=== PATIENT | female | born 1990 | race Hispanic/Latino ===

== ENCOUNTER 2019-05-01 12:31 | Outpatient (CLI) | payer MEDICAID ==
[2019-05-01] MEDS ORDERED: LACTATED RINGERS 500 ML IV ONE (12:59)
[2019-05-01 13:37] LABS: Hematocrit 36.3 % (30.3-42.9); Hemoglobin 12.1 gm/dl (10.1-14.3); Mean Corpuscular HGB Conc 33 % (30-34); Mean Corpuscular Volume 83 fl (79-97); Platelet Count 263 K/mm3 (140-440); Red Blood Count 4.36 M/mm3 (3.65-5.03); Red Cell Distribution Width 14.8 % (13.2-15.2)
[2019-05-01 14:00] LABS: Alanine Aminotransferase 7 units/L (7-56); Uric Acid 4.6 mg/dL (3.5-7.6)
[2019-05-01 14:23] LABS: Bilirubin,Urine NEG (Negative); Blood,Urine SM (Negative); Color,Urine Yellow (Yellow); Mucus,Urine FEW /HPF; Protein,Urine <15 mg/dL mg/dL (Negative)
[2019-05-01 15:24] VITALS: BP 140/69
[2019-05-02 21:34] LABS: Creatinine 24 Hour,Urine 1.3 (0.8-2.8); Creatinine,Urine 189.9 mg/dL (0.1-20.0)
== END 2019-05-01 15:41 | disposition home or self-care (01) ==
LOC: TRG 12:31
PROVIDERS: ATTEND Obstetrics & Gynecology
DX: O13.3 Gestational [pregnancy-induced] hypertension without significant proteinuria, third trimester (principal); Z3A.35 35 weeks gestation of pregnancy; Z87.891 Personal history of nicotine dependence
CPT/HCPCS: 36415; 59025; 81001; 82565; 82570; 83615; 84156; 84450; 84460; 84550; 85027

== ENCOUNTER 2019-05-07 19:15 | Inpatient (IN) | payer MEDICAID ==
[2019-05-07] MEDS ORDERED: LACTATED RINGERS 1,000 ML IV ONE (20:24)
[2019-05-07 20:44] LABS: Hematocrit 37.9 % (30.3-42.9); Hemoglobin 12.8 gm/dl (10.1-14.3); Mean Corpuscular HGB Conc 34 % (30-34); Mean Corpuscular Volume 84 fl (79-97); Platelet Count 248 K/mm3 (140-440); Red Blood Count 4.52 M/mm3 (3.65-5.03); Red Cell Distribution Width 14.9 % (13.2-15.2)
--- NOTE | 2019-05-07 20:55 | Anesthesia Consultation ---
Anesthesia Consult and Med Hx Date of service: 05/07/19 - Airway Anesthetic Teeth Evaluation: Poor ROM Head & Neck: Adequate Mental/Hyoid Distance: Adequate Mallampati Class: Class III Intubation Access Assessment: Probably Good - Pulmonary Exam CTA: Yes - Cardiac Exam Cardiac Exam: RRR - Pre-Operative Health Status ASA Pre-Surgery Classification: ASA3 Proposed Anesthetic Plan: Spinal - Pulmonary Hx Smoking: Yes Hx Asthma: No Hx Respiratory Symptoms: No SOB: No COPD: No Home Oxygen Therapy: No Hx Pneumonia: No Hx Sleep Apnea: No - Cardiovascular System Hx Hypertension: Yes Hx Coronary Artery Disease: No Hx Heart Attack/AMI: No Hx Angina: No Hx Percutaneous Transluminal Coronary Angioplasty (PTCA): No Hx Cardia Arrhythmia: No Hx Pacemaker: No Hx Internal Defibrillator: No Hx Valvular Heart Disease: No Hx Heart Murmur: No Hx Peripheral Vascular Disease: No - Central Nervous System Hx Neuromuscular Disorder: No Hx Seizures: No CVA: No Hx Back Pain: No Hx Psychiatric Problems: No - Gastrointestinal Hx Ulcer: No Hx Gastroesophageal Reflux Disease: No - Endocrine Hx Renal Disease: No Hx End Stage Renal Disease: No Hx Cirrhosis: No Hx Liver Disease: No Hx Insulin Dependent Diabetes: No Hx Non-Insulin Dependent Diabetes: No Hx Thyroid Disease: No Hx Hypothyroidism: No Hx Hyperthyroidism: No - Hematic Hx Anemia: No Hx Sickle Cell Disease: No - Other Systems Hx Alcohol Use: No Hx Substance Use: No Hx Cancer: No Hx Obesity: Yes (BMI 54.7)
[2019-05-07] MEDS ORDERED: ZOFRAN IV PRN (20:56)
[2019-05-07] MEDS ORDERED: BENADRYL IV PRN (20:56)
[2019-05-07] MEDS ORDERED: DILAUDID IV PRN ×2 (20:56)
--- NOTE | 2019-05-07 20:56 | Anesthesia Day of Surgery ---
Anesthesia Day of Surgery - Day of Surgery Patient Examined: Yes Patient H&P Reviewed: Yes Patient is NPO: Yes Beta Blockers: No Cardiac Clearance: No Pulmonary Clearance: No Rafat's Test: N/A
[2019-05-07] MEDS ORDERED: PEPCID IV ONE ×2 (20:58→21:33)
[2019-05-07] MEDS ORDERED: BICITRA ONE (20:58)
[2019-05-07] MEDS ORDERED: PITOCin/NS 20 UNIT/1000ML DRIP 20,000 MILLIUNITS/1,000 ML BAG IV ONE (20:58)
[2019-05-07] MEDS ORDERED: SODIUM CHLORIDE FLUSH SYRINGE 10 ML IV NR ×2 (21:00→22:00)
[2019-05-07] MEDS ORDERED: REGLAN IV NR (21:00)
[2019-05-07] MEDS ORDERED: DEXMEDETOMIDINE IV ONE (21:07)
[2019-05-07] MEDS ORDERED: ZOFRAN ONE (21:12)
[2019-05-07] MEDS ORDERED: TORADOL ONE (21:13)
--- NOTE | 2019-05-07 21:27 | History and Physical Report ---
<SATISH KRISHNAMURTHY N - Last Filed: 05/07/19 21:26> History of Present Illness Date of examination: 05/07/19 Date of admission: 05/07/19 19:15 Past History - Obstetrical History : 5 Medications and Allergies Allergies Allergy/AdvReac Type Severity Reaction Status Date / Time amoxicillin AdvReac Severe Hives Verified 05/01/19 12:59 Active Meds: Active Medications Diphenhydramine HCl (Benadryl) 12.5 mg IV Q2H PRN PRN Reason: Itching Hydromorphone HCl (Dilaudid) 0.5 mg IV Q5M PRN PRN Reason: Breakthrough Pain Stop: 05/08/19 05:24 Hydromorphone HCl (Dilaudid) 0.5 mg IV Q4H PRN PRN Reason: breakthrough pain > 7/10 Metoclopramide HCl (Reglan) 10 mg IV PREOP NR Stop: 05/08/19 20:59 Ondansetron HCl (Zofran) 4 mg IV Q8H PRN PRN Reason: Nausea And Vomiting Sodium Chloride (Sodium Chloride Flush Syringe 10 Ml) 10 ml IV PRN NR Stop: 05/08/19 20:59 Results Result Diagrams: 05/07/19 20:30 Abnormal lab results 05/07/19 Range/Units 20:30 WBC 12.7 H (4.5-11.0) K/mm3 All other labs normal. < NGOZIJESSIE L - Last Filed: 05/07/19 21:32> History of Present Illness Date of examination: 05/07/19 Date of admission: 05/07/19 19:15 Chief complaint: elevated blood pressure Medications and Allergies Active Meds: Active Medications Diphenhydramine HCl (Benadryl) 12.5 mg IV Q2H PRN PRN Reason: Itching Hydromorphone HCl (Dilaudid) 0.5 mg IV Q5M PRN PRN Reason: Breakthrough Pain Stop: 05/08/19 05:24 Hydromorphone HCl (Dilaudid) 0.5 mg IV Q4H PRN PRN Reason: breakthrough pain > 7/10 Metoclopramide HCl (Reglan) 10 mg IV PREOP NR Stop: 05/08/19 20:59 Ondansetron HCl (Zofran) 4 mg IV Q8H PRN PRN Reason: Nausea And Vomiting Sodium Chloride (Sodium Chloride Flush Syringe 10 Ml) 10 ml IV PRN NR Stop: 05/08/19 20:59 Results Result Diagrams: 05/07/19 20:30 05/07/19 20:30 Abnormal lab results 05/07/19 05/07/19 Range/Units 20:30 20:30 WBC 12.7 H (4.5-11.0) K/mm3 Creatinine 0.4 L (0.7-1.2) mg/dL Lactate Dehydrogenase 181 H (91-180) units/L All other labs normal.
[2019-05-07] MEDS ORDERED: CLEOCIN 900 MG/50 mL 900 MG/50 ML BAG IV ONE (21:28)
[2019-05-07 21:31] LABS: Alanine Aminotransferase 8 units/L (7-56); Uric Acid 4.7 mg/dL (3.5-7.6)
[2019-05-07] MEDS ORDERED: REGLAN IV ONE (21:33)
[2019-05-07] MEDS ORDERED: BICITRA PO ONE (21:33)
[2019-05-07] MEDS ORDERED: GENTAMICIN 80 MG in NACL 0.9% 100 ML IV ONE (21:33)
--- NOTE | 2019-05-07 21:33 | History and Physical Report ---
History of Present Illness Date of examination: 05/07/19 Date of admission: 05/07/19 19:15 Chief complaint: elevated blood pressure History of present illness: 28y/o @ 36+1 weeks presents for a repeat delivery secondary to persistently elevated blood pressures. Per recommendation of MFM, delivery today. Patient initiated care @ 14 weeks ega. course complicated gestational hypertension, morbid obesity, delivery, glucose intolerance. Past History Past Medical History: other (gestational hypertension; morbid obesity) Past Surgical History: section Social history: - Obstetrical History Expected Date of Delivery: 06/03/19 Actual Gestation: 36 Week(s) 1 Day(s) : 3 Para: 2 Hx # Term Pregnancies: 0 Number of Pregnancies: 2 Spontaneous Abortions: 0 Induced : 0 Number of Living Children: 2 Medications and Allergies Allergies Allergy/AdvReac Type Severity Reaction Status Date / Time amoxicillin AdvReac Severe Hives Verified 05/01/19 12:59 Active Meds: Active Medications Diphenhydramine HCl (Benadryl) 12.5 mg IV Q2H PRN PRN Reason: Itching Hydromorphone HCl (Dilaudid) 0.5 mg IV Q5M PRN PRN Reason: Breakthrough Pain Stop: 05/08/19 05:24 Hydromorphone HCl (Dilaudid) 0.5 mg IV Q4H PRN PRN Reason: breakthrough pain > 7/10 Metoclopramide HCl (Reglan) 10 mg IV PREOP NR Stop: 05/08/19 20:59 Ondansetron HCl (Zofran) 4 mg IV Q8H PRN PRN Reason: Nausea And Vomiting Sodium Chloride (Sodium Chloride Flush Syringe 10 Ml) 10 ml IV PRN NR Stop: 05/08/19 20:59 Review of Systems All systems: negative - Physical Exam Breasts: Positive: deferred Cardiovascular: Regular rate Lungs: Positive: Clear to auscultation Results Result Diagrams: 05/07/19 20:30 05/07/19 20:30 Abnormal lab results 05/07/19 05/07/19 Range/Units 20:30 20:30 WBC 12.7 H (4.5-11.0) K/mm3 Creatinine 0.4 L (0.7-1.2) mg/dL Lactate Dehydrogenase 181 H (91-180) units/L All other labs normal. Assessment and Plan - Patient Problems (1) Gestational hypertension Current Visit: Yes Status: Acute Plan to address problem: will proceed with a repeat delivery (2) Morbid obesity Current Visit: Yes Status: Acute (3) Previous delivery, antepartum Current Visit: Yes Status: Acute
--- NOTE | 2019-05-07 21:51 | Procedure Note ---
OB Delivery Note - Delivery Date of Delivery: 05/07/19 Surgeon: JESSIE NICHOLAS Estimated blood loss: other (600ml) - Section Preop diagnosis: repeat , other (gestational hypertension) Postop diagnosis: same section procedure: section, repeat low transverse Disposition: PACU Complications: none - A at 1 minute: 8 at 5 minutes: 9 Infant Gender: Male (5 lbs. 2 oz.)
[2019-05-07] MEDS ORDERED: LANSINOH TP PRN (21:52)
[2019-05-07] MEDS ORDERED: NARCAN 0.4 MG/1 ML IV PRN (21:52)
[2019-05-07] MEDS ORDERED: TYLENOL PO PRN (21:52)
[2019-05-07] MEDS ORDERED: TUCKS PAD TP PRN (21:52)
[2019-05-07] MEDS ORDERED: MORPHINE IV PRN (21:52)
[2019-05-07] MEDS ORDERED: MAGNESIUM SULFATE 4GM/100ML 4 GM/100 ML BAG IV ONE (21:52)
[2019-05-07] MEDS ORDERED: WATER FOR IRRIG STERILE IR ONE (22:00)
[2019-05-07] MEDS ORDERED: CLEOCIN 900 MG/50 mL 900 MG/50 ML BAG IV NR (22:00)
[2019-05-07] MEDS ORDERED: LACTATED RINGERS 1,000 ML IV SCH (22:00)
[2019-05-07] MEDS ORDERED: MAGNESIUM SULFATE 40GM/1000ML 40 GM/1,000 ML BAG IV SCH (22:00)
[2019-05-07] MEDS ORDERED: PITOCin/NS 20 UNIT/1000ML DRIP 20 UNITS/1,000 ML BAG IV SCH ×2 (22:00)
[2019-05-07] MEDS ORDERED: GENTAMICIN/NS 80 MG/100 ML 100 ML IV ONE (22:00)
[2019-05-07] MEDS ORDERED: NACL 0.9% IR ONE (22:00)
[2019-05-07 22:07] LABS: Basophils % (Auto) 0.3 % (0.0-1.8); Eosinophils # (Auto) 0.1 K/mm3 (0.0-0.4); Eosinophils % (Auto) 0.9 % (0.0-4.3); Hematocrit 38.5 % (30.3-42.9); Hemoglobin 12.8 gm/dl (10.1-14.3); Lymphocytes # (Auto) 2.6 K/mm3 (1.2-5.4); Lymphocytes % (Auto) 21.4 % (13.4-35.0); Mean Corpuscular HGB Conc 33 % (30-34); Mean Corpuscular Volume 85 fl (79-97); Monocytes # (Auto) 0.7 K/mm3 (0.0-0.8); Monocytes % (Auto) 5.7 % (0.0-7.3); Platelet Count 253 K/mm3 (140-440); Red Blood Count 4.56 M/mm3 (3.65-5.03); Red Cell Distribution Width 14.8 % (13.2-15.2)
--- NOTE | 2019-05-07 23:06 | Operative Report ---
Operative Report Operative Report: Date of surgery: 05/07/2019 Preoperative diagnosis: at 36+1 weeks; gestational hypertension possible preeclampsia; morbid obesity; previous delivery Postoperative diagnosis: Same as above Procedure: Repeat low-transverse delivery Surgeon: Brenna Olvera M.D. Anesthesia: Regional Estimated blood loss: 600 mL Findings: Liveborn male infant with Apgars of 8 and 9 weight 5 lbs. 2 oz. Indications: 28-year-old to 02 at 36+1 weeks who presents after being evaluated weighted by maternal- medicine with findings of significantly elevated blood pressures. It was the recommendation of maternal medicine that we proceed with delivery. Procedure: The patient was taken to the operating room and given regional anesthesia without complication. She was prepped and draped in a normal sterile fashion. A Pfannenstiel skin incision was made down to layer the fascia which was nicked in the midline extended laterally with the Bovie cautery. The superior aspect of the rectus fascia was grasped with Drayton clamps x2 and the rectus muscles off sha rply. This was done in inferior fashion as well. The rectus muscle midline and peritoneum entered bluntly. An Ray retractor was then inserted. A bladder blade was placed. The vesicouterine peritoneum was then entered sharply with Metzenbaum scissors. A bladder flap was created digitally. A low transverse uterine incision was then made and extended digitally. There was clear fluid upon entry into the uterine cavity. The head was delivered through the incision with fundal pressure. The cord was clamped and cut x2 and infant was passed off to pediatrics. The deepa centa was then manually extracted. The uterus was then exteriorized and cleared of clots and debris. The uterine incision was then closed in a running locked fashion with 0 Vicryl additional imbricating stitch was applied for 2 layer closure. The posterior cul-de-sac was then copiously irrigated. A paratubal cyst was removed from the left fallopian tube. The uterus was replaced back into the abdomen and pelvis were the gutters were then irrigated. The Ray retractor was then removed. Tisseel was placed over the uterine incision. The peritoneum was then reapproximated with 3-0 Vicryl incorporating the rectus muscle. The fascia was then closed with 0 Vicryl in a running fashion. The skin was then reapproximated with 3-0 Monocryl on a Jovanni needle subcuticular fashion. Steri-Strips to place across the incision and a Crede procedures performed at the end of the surgery. A pressure dressing was applied to the incision. The surgery productive of a liveborn male with Apgars of 8 and 9 weight 5 lbs. 2 oz. The patient was taken to the recovery room in stable condition. All sponge laps and needle counts correct x2.
--- NOTE | 2019-05-07 23:14 | Post Anesthesia Evaluation ---
- Post Anesthesia Evaluation Patient Participated: Yes Airway Patent: Yes Stable Respiratory Function: Yes Nausea/Vomiting: No Temp > 96.8F: Yes Pain Manageable: Yes Adequeate Hydration: Yes Anesthesia Complications: No Block Receding Appropriately: Yes Patient on Ventilator: No
[2019-05-08] MEDS: TORADOL IV PRN ×2 (04:00→09:33)
[2019-05-08 06:43] LABS: Bacteria,Urine 1+ /HPF (Negative); Bilirubin,Urine NEG (Negative); Blood,Urine LG (Negative); Color,Urine Amber (Yellow); Hyaline Casts,Urine 6 /LPF; Mucus,Urine 3+ /HPF; Urobilinogen,Urine < 2.0 mg/dL (<2.0)
[2019-05-08] MEDS ORDERED: LACTATED RINGERS 500 ML IV ONE (09:44)
[2019-05-08] MEDS: PERCOCET 5/325 PO PRN ×2 (12:54→20:06)
[2019-05-08 13:31] LABS: Hematocrit 35.2 % (30.3-42.9); Hemoglobin 11.9 gm/dl (10.1-14.3)
--- NOTE | 2019-05-08 17:28 | Progress Note ---
Assessment and Plan A: POD#1 s/p repeat at 36 wks, gestational hypertension on mag sulfate, morbid obesity P: Routine care. Mag sulfate x 24 hrs after delivery. Closely monitor clinical status. Subjective - Subjective Date of service: 05/08/19 Principal diagnosis: s/p repeat , gestational hypertension, morbid obesity Interval history: Pt without complaints presently. Patient reports: appetite normal, pain well controlled, no voiding normally (koroma in place ), no flatus, no bowel movement, no ambulating normally (SCDs) : doing well Objective - Vital Signs Latest vital signs: Vital Signs Temp Pulse Resp BP BP Pulse Ox 05/08/19 17:16 53 L 84 05/08/19 17:11 86 05/08/19 17:10 98 H 95 05/08/19 17:05 90 93 05/08/19 17:04 85 134/70 92 05/08/19 17:00 83 96 05/08/19 16:59 93 H 83 L 05/08/19 16:55 86 93 05/08/19 16:54 84 92 05/08/19 16:50 91 H 94 05/08/19 16:48 85 94 05/08/19 16:45 90 96 05/08/19 16:43 95 H 91 05/08/19 16:40 89 83 L 05/08/19 16:38 90 93 05/08/19 16:35 88 96 05/08/19 16:32 91 H 93 05/08/19 16:30 99 H 95 05/08/19 16:25 89 94 05/08/19 16:24 82 92 05/08/19 16:19 94 H 94 05/08/19 16:18 91 H 94 05/08/19 16:14 92 H 95 05/08/19 16:12 96 H 94 05/08/19 16:08 87 91 05/08/19 16:05 93 H 94 05/08/19 16:04 95 H 131/66 05/08/19 16:03 90 92 05/08/19 16:00 95 H 93 05/08/19 15:58 94 H 93 05/08/19 15:54 95 H 94 05/08/19 15:53 95 H 96 05/08/19 15:48 94 H 94 05/08/19 15:43 91 H 92 05/08/19 15:42 87 95 05/08/19 15:37 89 93 05/08/19 15:32 97 H 94 05/08/19 15:27 90 94 05/08/19 15:26 90 94 05/08/19 15:22 86 92 05/08/19 15:18 85 91 05/08/19 15:17 91 H 96 05/08/19 15:12 90 95 05/08/19 15:10 98 H 94 05/08/19 15:07 95 H 98 05/08/19 15:04 95 H 140/71 92 05/08/19 15:02 99 H 96 05/08/19 14:57 89 88 05/08/19 14:52 93 H 75 L 05/08/19 14:47 73 84 05/08/19 14:46 81 78 L 05/08/19 14:10 83 L 05/08/19 14:02 99 H 93 05/08/19 14:00 104 H 95 05/08/19 13:57 100 H 128/58 05/08/19 13:56 103 H 94 05/08/19 13:55 100 H 94 05/08/19 13:50 101 H 94 05/08/19 13:45 99 H 93 05/08/19 13:42 97 H 91 05/08/19 13:40 102 H 93 05/08/19 13:36 98 H 94 05/08/19 13:35 101 H 94 05/08/19 13:31 110 H 94 05/08/19 13:30 93 H 92 05/08/19 13:27 94 H 140/71 05/08/19 13:25 93 H 94 05/08/19 13:20 100 H 97 05/08/19 13:19 99 H 94 05/08/19 13:15 96 H 95 05/08/19 13:11 100 H 94 05/08/19 13:10 91 H 95 05/08/19 13:06 96 H 94 05/08/19 13:05 92 H 97 05/08/19 13:00 97 H 96 05/08/19 12:57 95 H 157/76 05/08/19 12:55 99 H 96 05/08/19 12:54 18 05/08/19 12:50 91 H 96 05/08/19 12:47 94 H 93 05/08/19 12:45 95 H 96 05/08/19 12:40 90 97 05/08/19 12:35 90 94 05/08/19 12:34 93 H 96 05/08/19 12:30 89 94 05/08/19 12:29 86 95 05/08/19 12:27 90 138/65 05/08/19 12:24 87 95 05/08/19 12:19 87 95 05/08/19 12:14 90 94 05/08/19 12:09 83 94 05/08/19 12:03 84 91 05/08/19 11:58 88 97 05/08/19 11:57 98.4 F 90 16 140/74 95 05/08/19 11:56 86 93 05/08/19 11:53 88 97 05/08/19 11:50 88 94 05/08/19 11:48 86 94 05/08/19 11:44 93 H 94 05/08/19 11:43 87 95 05/08/19 11:38 91 H 95 05/08/19 11:33 93 H 93 05/08/19 11:30 88 93 05/08/19 11:28 98 H 94 05/08/19 11:23 91 H 94 05/08/19 11:22 95 H 94 05/08/19 11:18 98 H 94 05/08/19 11:16 95 H 94 05/08/19 11:13 83 83 L 05/08/19 11:08 85 98 05/08/19 11:06 81 91 05/08/19 11:03 89 97 05/08/19 11:00 92 H 94 05/08/19 10:58 72 93 05/08/19 10:54 86 83 L 05/08/19 10:53 79 88 05/08/19 10:52 85 165/73 05/08/19 10:49 84 85 05/08/19 10:48 84 96 05/08/19 10:43 88 90 05/08/19 10:38 91 H 96 05/08/19 10:34 91 H 94 05/08/19 10:33 90 95 05/08/19 10:28 87 96 05/08/19 10:25 88 94 05/08/19 10:23 85 97 05/08/19 10:22 93 H 143/79 05/08/19 10:19 88 93 05/08/19 10:18 80 96 05/08/19 10:13 95 H 97 05/08/19 10:12 107 H 91 05/08/19 10:02 70 92 05/08/19 09:52 88 139/70 94 05/08/19 09:51 83 92 05/08/19 09:47 88 98 05/08/19 09:42 89 96 05/08/19 09:39 96 H 90 05/08/19 09:37 94 H 99 05/08/19 09:34 94 H 92 05/08/19 09:33 14 05/08/19 09:32 92 H 157/81 96 05/08/19 09:27 85 94 05/08/19 09:22 86 94 05/08/19 09:21 87 94 05/08/19 09:18 98.1 F 05/08/19 09:17 89 97 05/08/19 09:16 93 05/08/19 09:12 95 H 94 05/08/19 09:11 95 H 94 05/08/19 09:07 85 95 05/08/19 09:05 92 H 94 05/08/19 09:02 94 H 92 05/08/19 08:57 88 94 05/08/19 08:52 83 141/73 93 05/08/19 08:47 92 H 93 05/08/19 08:44 94 H 94 05/08/19 08:42 90 93 05/08/19 08:37 87 94 05/08/19 08:36 89 93 05/08/19 08:32 85 90 05/08/19 08:27 91 H 93 05/08/19 08:26 95 H 94 05/08/19 08:22 92 H 144/79 95 05/08/19 08:18 87 94 05/08/19 08:17 87 94 05/08/19 08:13 87 94 05/08/19 08:12 78 94 05/08/19 08:07 93 H 94 05/08/19 08:02 87 93 05/08/19 08:01 89 93 05/08/19 07:57 91 H 93 05/08/19 07:53 84 94 05/08/19 07:52 90 136/75 93 05/08/19 07:47 90 92 05/08/19 07:42 94 H 94 05/08/19 07:41 95 H 94 05/08/19 07:37 91 H 96 05/08/19 07:32 82 95 05/08/19 07:27 90 96 05/08/19 07:22 90 151/79 94 05/08/19 07:18 88 94 05/08/19 07:17 88 92 05/08/19 07:13 84 94 05/08/19 07:12 82 94 05/08/19 07:07 89 94 05/08/19 07:02 85 94 05/08/19 06:59 85 94 05/08/19 06:57 80 93 05/08/19 06:52 85 142/75 94 05/08/19 06:47 86 91 05/08/19 06:45 90 94 05/08/19 06:42 85 92 05/08/19 06:37 77 94 05/08/19 06:32 88 92 05/08/19 06:30 88 94 05/08/19 06:27 88 94 05/08/19 06:25 87 94 05/08/19 06:22 85 144/81 94 05/08/19 06:17 78 94 05/08/19 06:16 80 94 05/08/19 06:12 88 95 05/08/19 06:09 85 94 05/08/19 06:07 84 95 05/08/19 06:04 81 93 05/08/19 06:02 77 95 05/08/19 05:58 90 94 05/08/19 05:57 79 91 05/08/19 05:52 84 140/69 93 05/08/19 05:48 84 94 05/08/19 05:47 78 90 05/08/19 05:42 75 91 05/08/19 05:37 78 91 05/08/19 05:32 80 91 05/08/19 05:30 75 93 05/08/19 05:27 79 91 05/08/19 05:22 75 148/69 93 05/08/19 05:17 84 92 05/08/19 05:15 76 93 05/08/19 05:12 83 93 05/08/19 05:07 80 93 05/08/19 05:02 95 H 97 09/10/19 04:58 80 94 05/08/19 04:57 79 92 05/08/19 04:53 83 94 05/08/19 04:52 78 143/67 90 05/08/19 04:47 78 90 05/08/19 04:45 81 93 05/08/19 04:42 71 94 05/08/19 04:37 78 93 05/08/19 04:32 73 92 05/08/19 04:30 18 05/08/19 04:28 75 93 05/08/19 04:27 79 92 05/08/19 04:22 82 130/66 93 05/08/19 04:17 80 94 05/08/19 04:12 80 94 05/08/19 04:10 82 94 05/08/19 04:07 83 97 05/08/19 04:02 81 96 05/08/19 04:00 18 05/08/19 03:57 82 96 05/08/19 03:53 79 94 05/08/19 03:52 83 143/72 93 05/08/19 03:47 77 93 05/08/19 03:45 87 94 05/08/19 03:42 77 97 05/08/19 03:37 83 97 05/08/19 03:32 84 97 05/08/19 03:27 78 97 05/08/19 03:22 75 130/70 97 05/08/19 03:17 80 98 05/08/19 03:12 80 97 05/08/19 03:07 79 98 05/08/19 03:02 78 98 05/08/19 02:57 80 96 05/08/19 02:52 79 120/63 97 05/08/19 02:47 73 97 05/08/19 02:42 88 80 L 05/08/19 02:41 78 85 05/08/19 02:22 77 132/59 05/08/19 01:52 78 128/61 05/08/19 01:29 97.8 F 82 18 128/60 05/08/19 00:35 97.5 F L 78 14 116/66 98 05/08/19 00:10 73 20 122/56 96 05/07/19 23:55 79 15 107/59 95 05/07/19 23:41 74 18 98/69 93 05/07/19 23:25 73 20 112/43 94 05/07/19 23:21 97.8 F 77 20 93/46 95 05/07/19 23:15 98.7 F 77 20 94/40 94 Intake and Output 05/08/19 05/08/19 05/08/19 06:59 14:59 22:59 Intake Total 120 120 Output Total 400 350 250 Balance -400 -230 -130 Intake: Oral 120 120 Output: Urine 400 350 250 Indwelling Catheter 100 350 250 Uretheral ([place]) 300 Other: Total, Intake Amount 120 120 Total, Output Amount 100 50 200 - Exam Breasts: Present: deferred Abdomen: Present: soft (obese ) Extremities: Present: edema (trace ) Incision: Present: dressed - Labs Labs: Abnormal lab results 05/07/19 05/07/19 05/07/19 Range/Units 20:30 20:30 20:30 WBC 12.7 H 12.3 H (4.5-11.0) K/mm3 Seg Neutrophils % 71.7 H (40.0-70.0) % Seg Neutrophils # 8.8 H (1.8-7.7) K/mm3 Creatinine 0.4 L (0.7-1.2) mg/dL Magnesium (1.7-2.3) mg/dL Lactate Dehydrogenase 181 H (91-180) units/L Ur Specific [place] (1.003-1.030) Urine WBC (Auto) (0.0-6.0) /HPF 05/08/19 05/08/19 Range/Units 07:23 Unknown WBC (4.5-11.0) K/mm3 Seg Neutrophils % (40.0-70.0) % Seg Neutrophils # (1.8-7.7) K/mm3 Creatinine (0.7-1.2) mg/dL Magnesium 4.70 H (1.7-2.3) mg/dL Lactate Dehydrogenase (91-180) units/L Ur Specific [place] 1.034 H (1.003-1.030) Urine WBC (Auto) 12.0 H (0.0-6.0) /HPF
[2019-05-09] MEDS: PERCOCET 5/325 PO PRN ×3 (01:44→18:00)
--- NOTE | 2019-05-09 08:22 | Progress Note ---
Assessment and Plan POD2 s/p repeat LTCS, gestational hypertension (s/p magnesium infusion), and morbid obesity Labs and VSS today, discharge to home Skin irritation, apply hydrocortisone ointment Subjective - Subjective Date of service: 05/09/19 Principal diagnosis: s/p repeat , gestational hypertension, morbid obesity Interval history: Pt is POD2 s/p repeat . Magnesium sulfate x24 hr infusion discontinued at 2300 last night. Patient reports: appetite normal, voiding normally, pain well controlled, flatus, ambulating normally [place]: doing well, bottle feeding Objective - Vital Signs Latest vital signs: Vital Signs Temp Pulse Resp BP BP Pulse Ox 05/08/19 23:45 97.5 F L 93 H 113/62 05/08/19 22:03 91 H 145/84 05/08/19 21:03 95 H 146/77 05/08/19 20:40 105 H 87 05/08/19 20:24 78 L 05/08/19 20:23 102 H 97 05/08/19 20:18 96 H 98 05/08/19 20:13 94 H 97 05/08/19 20:06 18 05/08/19 20:05 92 H 69 L 05/08/19 20:04 96 H 129/65 05/08/19 20:00 85 05/08/19 19:59 67 83 L 05/08/19 19:56 98.2 F 05/08/19 19:55 84 05/08/19 19:54 54 L 82 L 05/08/19 19:50 89 05/08/19 19:47 117 H 86 05/08/19 19:43 92 05/08/19 19:39 98 H 137/61 05/08/19 19:36 92 05/08/19 19:28 87 89 05/08/19 19:22 64 86 05/08/19 19:08 79 79 L 05/08/19 19:02 119 H 81 L 05/08/19 18:57 87 05/08/19 18:51 89 05/08/19 18:42 88 05/08/19 18:36 85 05/08/19 18:28 92 H 0 L 05/08/19 18:12 75 L 05/08/19 18:03 62 72 L 05/08/19 17:58 72 L 05/08/19 17:48 73 L 05/08/19 17:40 81 83 L 05/08/19 17:34 89 05/08/19 17:16 53 L 84 05/08/19 17:11 86 05/08/19 17:10 98 H 95 05/08/19 17:05 90 93 05/08/19 17:04 85 134/70 92 05/08/19 17:00 83 96 05/08/19 16:59 93 H 83 L 05/08/19 16:55 86 93 05/08/19 16:54 84 92 05/08/19 16:50 91 H 94 05/08/19 16:48 85 94 05/08/19 16:45 90 96 05/08/19 16:43 95 H 91 05/08/19 16:40 89 83 L 05/08/19 16:38 90 93 05/08/19 16:35 88 96 05/08/19 16:32 91 H 93 05/08/19 16:30 99 H 95 05/08/19 16:25 89 94 05/08/19 16:24 82 92 05/08/19 16:19 94 H 94 05/08/19 16:18 91 H 94 05/08/19 16:14 92 H 95 05/08/19 16:12 96 H 94 05/08/19 16:08 87 91 05/08/19 16:05 93 H 94 05/08/19 16:04 95 H 131/66 05/08/19 16:03 90 92 05/08/19 16:00 95 H 93 05/08/19 15:58 94 H 93 05/08/19 15:54 95 H 94 05/08/19 15:53 95 H 96 05/08/19 15:48 94 H 94 05/08/19 15:43 91 H 92 05/08/19 15:42 87 95 05/08/19 15:37 89 93 05/08/19 15:32 97 H 94 05/08/19 15:27 90 94 05/08/19 15:26 90 94 05/08/19 15:22 86 92 05/08/19 15:18 85 91 05/08/19 15:17 91 H 96 05/08/19 15:12 90 95 05/08/19 15:10 98 H 94 05/08/19 15:07 95 H 98 05/08/19 15:04 95 H 140/71 92 05/08/19 15:02 99 H 96 05/08/19 14:57 89 88 05/08/19 14:52 93 H 75 L 05/08/19 14:47 73 84 05/08/19 14:46 81 78 L 05/08/19 14:10 83 L 05/08/19 14:02 99 H 93 05/08/19 14:00 104 H 95 05/08/19 13:57 100 H 128/58 05/08/19 13:56 103 H 94 05/08/19 13:55 100 H 94 05/08/19 13:50 101 H 94 05/08/19 13:45 99 H 93 05/08/19 13:42 97 H 91 05/08/19 13:40 102 H 93 05/08/19 13:36 98 H 94 05/08/19 13:35 101 H 94 05/08/19 13:31 110 H 94 05/08/19 13:30 93 H 92 05/08/19 13:27 94 H 140/71 05/08/19 13:25 93 H 94 05/08/19 13:20 100 H 97 05/08/19 13:19 99 H 94 05/08/19 13:15 96 H 95 05/08/19 13:11 100 H 94 05/08/19 13:10 91 H 95 05/08/19 13:06 96 H 94 05/08/19 13:05 92 H 97 05/08/19 13:00 97 H 96 05/08/19 12:57 95 H 157/76 05/08/19 12:55 99 H 96 05/08/19 12:54 18 05/08/19 12:50 91 H 96 05/08/19 12:47 94 H 93 05/08/19 12:45 95 H 96 05/08/19 12:40 90 97 05/08/19 12:35 90 94 05/08/19 12:34 93 H 96 05/08/19 12:30 89 94 05/08/19 12:29 86 95 05/08/19 12:27 90 138/65 05/08/19 12:24 87 95 05/08/19 12:19 87 95 05/08/19 12:14 90 94 05/08/19 12:09 83 94 09/10/19 12:03 84 91 05/08/19 11:58 88 97 05/08/19 11:57 98.4 F 90 16 140/74 95 05/08/19 11:56 86 93 05/08/19 11:53 88 97 05/08/19 11:50 88 94 05/08/19 11:48 86 94 05/08/19 11:44 93 H 94 05/08/19 11:43 87 95 05/08/19 11:38 91 H 95 05/08/19 11:33 93 H 93 05/08/19 11:30 88 93 05/08/19 11:28 98 H 94 05/08/19 11:23 91 H 94 05/08/19 11:22 95 H 94 05/08/19 11:18 98 H 94 05/08/19 11:16 95 H 94 05/08/19 11:13 83 83 L 05/08/19 11:08 85 98 05/08/19 11:06 81 91 05/08/19 11:03 89 97 05/08/19 11:00 92 H 94 05/08/19 10:58 72 93 05/08/19 10:54 86 83 L 05/08/19 10:53 79 88 05/08/19 10:52 85 165/73 05/08/19 10:49 84 85 05/08/19 10:48 84 96 05/08/19 10:43 88 90 05/08/19 10:38 91 H 96 05/08/19 10:34 91 H 94 05/08/19 10:33 90 95 05/08/19 10:28 87 96 05/08/19 10:25 88 94 05/08/19 10:23 85 97 05/08/19 10:22 93 H 143/79 05/08/19 10:19 88 93 05/08/19 10:18 80 96 05/08/19 10:13 95 H 97 05/08/19 10:12 107 H 91 05/08/19 10:02 70 92 05/08/19 09:52 88 139/70 94 05/08/19 09:51 83 92 05/08/19 09:47 88 98 05/08/19 09:42 89 96 05/08/19 09:39 96 H 90 05/08/19 09:37 94 H 99 05/08/19 09:34 94 H 92 05/08/19 09:33 14 05/08/19 09:32 92 H 157/81 96 05/08/19 09:27 85 94 05/08/19 09:22 86 94 05/08/19 09:21 87 94 05/08/19 09:18 98.1 F 05/08/19 09:17 89 97 05/08/19 09:16 93 05/08/19 09:12 95 H 94 05/08/19 09:11 95 H 94 05/08/19 09:07 85 95 05/08/19 09:05 92 H 94 05/08/19 09:02 94 H 92 05/08/19 08:57 88 94 05/08/19 08:52 83 141/73 93 05/08/19 08:47 92 H 93 05/08/19 08:44 94 H 94 05/08/19 08:42 90 93 05/08/19 08:37 87 94 05/08/19 08:36 89 93 05/08/19 08:32 85 90 05/08/19 08:27 91 H 93 05/08/19 08:26 95 H 94 05/08/19 08:22 92 H 144/79 95 Intake and Output 05/08/19 05/09/19 05/09/19 23:59 07:59 15:59 Intake Total 1120 Output Total 1000 750 Balance 120 -750 Intake: IV 1000 PITOCin/NS 20 UNIT/1000ML 1000 DRIP 20 units In 1,000 ml @ 250 mls/hr IV DIRECT [facility] Rx#:[id number] Oral 120 Output: Urine 1000 750 Indwelling Catheter 1000 Void 750 Other: Total, Intake Amount 120 Total, Output Amount 800 750 # Voids Void 3 - Exam Lungs: Present: Normal air movement Abdomen: Present: normal appearance, soft Uterus: Present: normal, firm, fundal height below umbilicus Extremities: Present: edema (2+) Incision: Present: dressed Comments: Irritation between folds of panus
--- NOTE | 2019-05-09 08:26 | Discharge Summary ---
Providers - Providers Date of Admission: 05/07/19 19:15 Date of discharge: 05/09/19 Attending physician: JESSIE NICHOLAS Primary care physician: JESSIE NICHOLAS Hospitalization Reason for admission: section Delivery: Procedure: repeat low transverse Incision: dressed Other procedures: none complications: other (gestational hypertension, received magnesium sulfate infusion x24 hrs) Discharge diagnosis: delivery Hospital course: Pt presented for repeat secondary to gestational hypertension and morbid obesity. Received Magnesium Sulfate infusion x24 hours post op. Pt tolerated PO and passed flatus on POD1. Condition at discharge: Good Disposition: DC-01 TO HOME OR SELFCARE Plan - Discharge Medications Prescriptions: Hydrocortisone 1% [Hydrocortisone 1% CREAM] 1 applic TP Q8H PRN #1 tube PRN Reason: Skin Irritation Ibuprofen [Motrin 800 MG tab] 800 mg PO Q8H PRN #60 tablet PRN Reason: Pain, Mild (1-3) oxyCODONE /ACETAMINOPHEN [Percocet 5/325 mg] 2 tab PO Q4H PRN #40 tablet PRN Reason: Pain, Moderate (4-6) - Provider Discharge Summary Activity: routine, no sex for 6 weeks, no heavy lifting 4 weeks, no strenuous exercise Diet: routine Instructions: routine Additional instructions: [] Smoking cessation referral if applicable(refer to patient education folder for contact #) [] Refer to [facility] Booklet Call your doctor immediately for: * Fever > 100.5 * Heavy vaginal bleeding ( >1 pad per hour) * Severe persistent headache * Shortness of breath * Reddened, hot, painful area to leg or breast * Drainage or odor from incision. * Keep incision clean and dry at all times and follow doctor's instructions regarding bathing/showering - Follow up plan Follow up: JESSIE NICHOLAS MD [Primary Care Provider] - 7 Days (Call to schedule appointment for blood pressure check in 1 week, and incision check in 2 weeks.)
[2019-05-09] MEDS ORDERED: HYDROCORTISONE CR TP PRN (09:00)
[2019-05-09] MEDS: IBUPROFEN PO PRN ×2 (11:47→23:08)
[2019-05-10] MEDS: IBUPROFEN PO PRN (05:58)
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
[2019-05-10 10:52] VITALS: BP 147/67
== END 2019-05-10 18:15 | disposition home or self-care (01) | DRG 765 ==
LOC: APU 19:15 → LD 05-08 01:18 → OB 05-09 00:16
PROVIDERS: ADMIT Obstetrics & Gynecology; ATTEND Obstetrics & Gynecology
PROC: 10D00Z1 Extraction of Products of Conception, Low, Open Approach (ICD-10-PCS; principal; 2019-05-07)
PROC: 0UQF0ZZ Repair Cul-de-sac, Open Approach (ICD-10-PCS; 2019-05-07)
PROC: 0UB60ZZ Excision of Left Fallopian Tube, Open Approach (ICD-10-PCS; 2019-05-07)
DX: O34.211 Maternal care for low transverse scar from previous cesarean delivery (principal); O60.14X0 Preterm labor third trimester with preterm delivery third trimester, not applicable or unspecified; O13.4 Gestational [pregnancy-induced] hypertension without significant proteinuria, complicating childbirth; O99.214 Obesity complicating childbirth; O34.83 Maternal care for other abnormalities of pelvic organs, third trimester; E66.01 Morbid (severe) obesity due to excess calories; O99.334 Smoking (tobacco) complicating childbirth; N83.8 Other noninflammatory disorders of ovary, fallopian tube and broad ligament; F17.200 Nicotine dependence, unspecified, uncomplicated; Z37.0 Single live birth; Z3A.36 36 weeks gestation of pregnancy; Z71.3 Dietary counseling and surveillance; Z88.1 Allergy status to other antibiotic agents
CPT/HCPCS: 36415; 81001; 82565; 83615; 83735; 84450; 84460; 84550; 85014; 85018; 85025; 85027; 86592; 86850; 86900; 86901; 87086; 88304; 99406; G0378; A6250; C9250; J1580; J1885; J2405; J2590; J2765; J3475; J3490; J7120